=== PATIENT | male | born 1980 | race Hispanic/Latino ===

== ENCOUNTER 2025-01-26 11:30 | Emergency (ER) | payer SELFPAY ==
[~2025-01-26] VITALS: Ht 165.1 cm; Wt 81.6 kg
[2025-01-26 12:06] LABS: NUCLEATED RED BLOOD CELLS 0.0 % (0.0-0.19); PLATELET COUNT (AUTO) 253.0 K/uL (130-400); RED BLOOD CELL COUNT(AUTO) 5.18 MIL/uL (4.50-6.20); RED CELL DISTRIBUTION WIDTH 13.1 % (11.0-15.5); WHITE BLOOD COUNT (AUTO) 11.7 K/uL (4.8-10.8)
[2025-01-26 12:18] LABS: CREATININE 1.1 mg/dL (0.5-1.3); GLOMERULAR FILTR. RATE CALC 85.0 mL/min (>90); GLUCOSE,RANDOM 159.0 mg/dL (70-105); SODIUM SERUM 137.0 mmol/L (136-145); UREA NITROGEN, BLOOD 15.0 mg/dL (7-18)
[2025-01-26 12:24] LABS: CREATINE KINASE, TOTAL 189.0 U/L (21-232)
[2025-01-26] MEDS ORDERED: IOHEXOL-350 75 ML VIAL IV ONE (13:16)
--- NOTE | 2025-01-26 14:25 | ERN ---
General Chief Complaint: Rib Pain Stated Complaint: RT RIB PAIN Time Seen by MD: 11:31 Source: patient, family History of Present Illness Initial Comments Patient is a 44-year-old male coming in complaining a night abdominal pain. Per patient he fell off a 5 ft ladder yesterday and has been having abdominal pain since then. Allergies: Coded Allergies: No Known Allergies (Unverified Allergy, Unknown, 01/26/25) Past Medical History Past Medical History: Diabetes-Type II Past Surgical History: Other ROS Dictation CONSTITUTIONAL: No chills, no fever, no weakness, no diaphoresis, no malaise. HEAD/FACE: No signs of trauma. EENT: No eye pain, no blurred vision, no tearing, no double vision, no ear pain, no ear discharge, no nose pain, no nasal congestion, no throat pain, no t hroat swelling, no mouth pain. RESPIRATORY: No cough, no orthopnea, no SOB, no stridor, no wheezing. CARDIOVASCULAR: No chest pain, no edema, no palpitations, no syncope. GASTROINTESTINAL/ABDOMINAL: No abdominal pain, no constipation, no diarrhea, n o nausea, no vomiting. GENITOURINARY: No abnormal discharge, no dysuria, no frequent urination, no hematuria. No complaints of pain in the genitals. MUSCULOSKELETAL: No back pain, no gout, no joint pain, no joint swelling, no muscle pain, no muscle stiffness, no neck pain. INTEGUMENTARY: No change in color, no change in hair/nails, no dryness, no lesion, no lumps, no rash. NEUROLOGICAL/PSYCH: No anxiety, not depressed, no emotional problem, no headache, no numbness, no pre-existing deficit, no history of seizures, no tremors, no weakness. HEMATOLOGIC/LYMPHATIC: Not anemic, no history of blood clots, no apparent bleeding, no bruising, glands not swollen. All Systems Negative, Except as Noted. Physical Exam Physical Exam Dictation VITAL SIGNS: Reviewed. GENERAL APPEARANCE: Alert, oriented x3, no acute distress, obese. HEAD AND FACE: Non-traumatic. EYES: PERRL, pink conjunctivas, eyelid no trauma, anterior chamber clear. EARS: Pinnas intact and no signs of trauma or erythema. Ear canals clear and no discharge. TMs no erythema. NOSE: No discharge, no bleeding. OROPHARYNX: Mouth normal, teeth no caries, tongue pink. Pharynx clear, no erythema. Tonsils no exudates, no abscesses noted. Mucous membrane moist. NECK: Supple, non-tender, no thyromegaly, no masses, no JVD, no bruits. BREAST: Deferred. CHEST: No tenderness, no crepitus, no paradoxical movement, no retractions. LUNGS: Clear, well-ventilated, symmetric, no rales, no wheezing, no rhonchi, no stridor, good breath sounds bilaterally. HEART: Regular rate, regular rhythm, no murmur, no gallops. VASCULAR: No peripheral edema. ABDOMEN: Soft, positive bowel sounds, nondistended, no guarding, nontender, no rebound, no masses no hepatomegaly, no splenomegaly, no Rao's sign, no hernias. RECTAL: Deferred. GENITAL: Deferred. NEUROLOGICAL: Normal speech, gross motor function intact, gross sensory function intact. MUSCULOSKELETAL: Neck nontender, full range of motion, back nontender, full range of motion. EXTREMITIES: Nontender, full range of motion. SKIN: Color pink, dry, no turgor, no rash, no lacerations, no abrasions, no contusions. LYMPHATICS: Deferred. Results Laboratory and Microbiology Lab and Micro Result Laboratory Tests Test 01/26/25 11:55 White Blood Count 11.7 K/uL (4.8-10.8) H Red Blood Count 5.18 MIL/uL (4.50-6.20) Hemoglobin 15.3 g/dL (14.0-18.0) Hematocrit 46.1 % (42-54) Mean Corpuscular Volume 89.0 fL (79-99) Mean Corpuscular Hemoglobin 29.5 pg (27.0-33.0) Mean Corpuscular Hemoglobin Concent 33.2 g/dL (32.0-36.0) Red Cell Distribution Width 13.1 % (11.0-15.5) Platelet Count 253 K/uL (130-400) Mean Platelet Volume 10.6 fL (7.5-10.5) H Nucleated Red Blood Cells 0.0 % (0.0-0.19) Sodium Level 137 mmol/L (136-145) Potassium Level 4.2 mmol/L (3.5-5.1) Chloride Level 100 mmol/L (101-111) L Carbon Dioxide Level 29 mmol/L (21-32) Blood Urea Nitrogen 15 mg/dL (7-18) Creatinine 1.1 mg/dL (0.5-1.3) Glomerular Filtration Rate Calc 85 mL/min (>90) Random Glucose 159 mg/dL (70-105) H Total Calcium 9.1 mg/dL (8.5-10.1) Total Creatine Kinase 189 U/L (21-232) Labs Reviewed?: Yes EKG/XRAY/US/CT/MRI X-RAY Comment [facility] [address] [place] [address] [id number] IMAGING REPORT Signed PATIENT: JOSESITO MEJIA MR#: [id number] : 1980 SEX: M AGE: 44 LOCATION: [facility] ORDER [id number] STATUS: [facility] REPORT#: [id number] SERVICE 144 REASON: trauma ORDERING PHYSICIAN: WEST FENG MD PROCEDURE: RIB RT W C - RIBS UNI RT W PA CHEST 3+ VWS CLINICAL INFORMATION Trauma COMPARISON None. TECHNIQUE Frontal view chest. Additional select views of the ribs. FINDINGS Lines and tubes: None Lungs: Clear. Pleura: Unremarkable. No effusion or pneumothorax. Cardiomediastinal Silhouette: Unremarkable. Bones: Minimally displaced right lateral eighth and ninth rib fractures. Soft Tissues: Normal. IMPRESSION Minimally displaced right lateral eighth and ninth rib fractures. No pneumothorax. /[place] DICTATED BY: BLU LINN MD DATE: 01/26/251641 ELECTRONICALLY SIGNED BY: BLU LINN MD DATE: 01/26/251641 CT Scan Comment [facility] [address] [place] [id number] IMAGING REPORT Signed PATIENT: JOSESITO MEJIA MR#: [id number] : 1980 SEX: M AGE: 44 LOCATION: [facility] ORDER 36 STATUS: REG ER REPORT#: [id number] SERVICE REASON: abd/ rlq pain trauma ORDERING PHYSICIAN: WEST FENG MD PROCEDURE: ABD PEL W - CT ABDOMEN/PELVIS W/CONTRAST STUDY CT Abdomen and Pelvis with intravenous contrast. HISTORY Abdominal and right lower quadrant pain; history of trauma. TECHNIQUE Axial computed tomography images of the abdomen and pelvis were obtained with intravenous contrast administration. COMPARISON No prior relevant imaging available for comparison. FINDINGS LUNG BASES The visualized lung bases are clear. No pleural effusion or focal consolidation is demonstrated. Minimal bilateral pleural thickening is present with adjacent subpleural plate-like atelectasis measuring up to 1.2 cm on the right and less than 1 cm on the left. LIVER AND BILIARY SYSTEM The liver is mildly enlarged, measuring approximately 16 cm in craniocaudal dimension, with diffusely decreased attenuation compatible with hepatic steatosis. No focal hepatic lesion, capsular disruption, or evidence of traumatic hepatic injury is identified. The gallbladder is unremarkable without radiopaque cholelithiasis, and there is no intrahepatic or extrahepatic biliary ductal dilatation. PANCREAS The pancreas is normal in size and contour, with homogeneous enhancement and no peripancreatic inflammatory changes or fluid collection. SPLEEN The spleen is normal in size and attenuation, without focal lesion or imaging features of splenic injury. ADRENAL GLANDS The adrenal glands are normal in size and morphology without nodule or hemorrhage. KIDNEYS, URETERS, AND BLADDER Both kidneys are normal in size and enhancement without focal lesion, hydronephrosis, or hydroureter. No urinary tract calculi are identified. The urinary bladder is unremarkable in contour and wall thickness. STOMACH AND BOWEL The stomach and visualized small and large bowel loops are normal in caliber and course. There is no evidence of bowel obstruction, wall thickening, pneumatosis, or CT features to suggest enteritis or colitis. APPENDIX The appendix is visualized and appears normal in caliber with no mural thickening, hyperenhancement, periappendiceal fat stranding, or adjacent collection to suggest acute appendicitis. PERITONEUM AND MESENTERY There is no intraperitoneal free air or free fluid. No mesenteric hematoma or organized intra-abdominal collection is seen. LYMPH NODES No pathologically enlarged abdominal or pelvic lymph nodes are identified. REPRODUCTIVE ORGANS The visualized reproductive structures are unremarkable for age and sex as provided, without mass or acute abnormality. VASCULATURE The abdominal aorta is normal in caliber without aneurysm. No major abdominal or pelvic vascular injury is identified. MUSCULOSKELETAL The visualized osseous structures demonstrate normal alignment and mineralization. No acute fracture, dislocation, or aggressive osseous lesion is evident. No significant traumatic soft tissue hematoma is seen in the abdominal or pelvic wall. IMPRESSION * No CT evidence of acute intra-abdominal or pelvic traumatic injury or acute appendicitis; no intra-abdominal collection identified. * Mild hepatomegaly with diffuse hepatic steatosis. * Minimal bilateral pleural thickening with small subpleural plate-like atelectasis at the lung bases, right greater than left. /[place] DICTATED BY: ARIANA WAGNER MD DATE: 01/26/251534 ELECTRONICALLY SIGNED BY: ARIANA WAGNER MD DATE: 01/26/251534 MDM MDM: Differential diagnosis:rib fracture, fall Rationale: Tests considered and ordered secondary to shared decision making include: Previous outside records reviewed: Old ER visits. Risk of complication and/or morbidity or mortality of patient management: None Medications-Per medication reconciliation Need for hospitalization: Patient does not meet criteria for hospitalization. Need for emergency major/minor surgery: No Patient is a 44-year-old male coming in complaining of a fall. X-ray disclose rib fractures in the right side. Patient will be discharged in stable condition with a diagnosis of right-sided rib fracture. ED Course Orders Procedure Category Date Status Time Cbc Without LAB 01/26/25 Complete Differential 11:36 Basic Metabolic Panel LAB 01/26/25 Complete 11:36 Creatine Kinase, Total LAB 01/26/25 Complete 11:36 Ct Abdomen/Pelvis CT 01/26/25 Resulted W/Contrast 11:36 Iohexol (Omnipaque) PHA 01/26/25 Complete 13:16 Ribs Uni Rt W Pa RAD 01/26/25 Resulted Chest 3+ Vws 14:41 Current Medications Medications (Trade) Dose Ordered Sig/Nicko Route PRN Reason Start Time Stop Time Status Last Admin Dose Admin Iohexol (Omnipaque) 75 ml STK-MED ONCE IV 01/26/25 13:16 01/26/25 13:16 DC Vital Signs Date Time Temp Pulse Resp B/P (MAP) Pulse Ox O2 Delivery O2 Flow Rate FiO2 01/26/25 14:54 98.1 88 20 142/88 97 Room Air* 0 21 01/26/25 11:45 98.1 91 20 154/96 97 Room Air* 0 21 01/26/25 11:31 98.1 91 20 154/96 97 Room Air 0 DX & DISP Disposition: Discharge Departure Impression: Primary Impression: Ribs, multiple fractures Condition: Stable Scripts Naproxen (Naproxen) 500 Mg Tablet 1 TAB PO BID for pain for 7 Days, #14 TAB 0 Refills Prov: WEST FENG MD 01/26/25 Gabapentin (Gabapentin) 100 Mg Capsule 1 CAP PO BID for 7 Days, #14 CAP 0 Refills Prov: WEST FENG MD 01/26/25 Additional Instructions: FOLLOW-UP WITH PRIMARY CARE PROVIDER IN 1 TO 2 DAYS. TAKE MEDICATIONS DIRECTED HERE IN THE EMERGENCY ROOM. OKAY TO CONTINUE HOME MEDICATIONS UNLESS OTHERWISE DISCUSSED DURING YOUR VISIT IN THE EMERGENCY ROOM TODAY. RETURN TO YOUR NEAREST EMERGENCY ROOM IF SYMPTOMS WORSEN OR IF THERE IS NO IMPROVEMENT. CALL 911 IF YOU NEED IMMEDIATE ASSISTANCE. TAKE TYLENOL [id number] NEEDED AND IF NO CONTRAINDICATIONS ARE PRESENT. INCREASE ORAL HYDRATION. A WOUND CULTURE OR URINE CULTURE WAS ORDERED HERE IN THE EMERGENCY ROOM DEPARTMENT PLEASE FOLLOW-UP WITH PRIMARY CARE PROVIDER AND ADVISE THEM TO GET REPORTS FROM OUR FACILITY. IF YOU HAD ANY BHUPINDER WRAP/SPLINTS THAT WERE APPLIED HERE, PLEASE DO NOT REMOVE THEM UNTIL YOU SEE YOUR PRIMARY CARE OR SPECIALTY. Referrals: Referrals: SELF,REFERRAL (PCP) JOSÉ MIGUEL HODGES MD, LUIS A MD Time of Disposition: 15:49 WEST FENG MD Jan 26, 2025 14:25
--- NOTE | 2025-01-26 14:37 | HMCIMG ---
STUDY CT Abdomen and Pelvis with intravenous contrast. HISTORY Abdominal and right lower quadrant pain; history of trauma. TECHNIQUE Axial computed tomography images of the abdomen and pelvis were obtained with intravenous contrast administration. COMPARISON No prior relevant imaging available for comparison. FINDINGS LUNG BASES The visualized lung bases are clear. No pleural effusion or focal consolidation is demonstrated. Minimal bilateral pleural thickening is present with adjacent subpleural plate-like atelectasis measuring up to 1.2 cm on the right and less than 1 cm on the left. LIVER AND BILIARY SYSTEM The liver is mildly enlarged, measuring approximately 16 cm in craniocaudal dimension, with diffusely decreased attenuation compatible with hepatic steatosis. No focal hepatic lesion, capsular disruption, or evidence of traumatic hepatic injury is identified. The gallbladder is unremarkable without radiopaque cholelithiasis, and there is no intrahepatic or extrahepatic biliary ductal dilatation. PANCREAS The pancreas is normal in size and contour, with homogeneous enhancement and no peripancreatic inflammatory changes or fluid collection. SPLEEN The spleen is normal in size and attenuation, without focal lesion or imaging features of splenic injury. ADRENAL GLANDS The adrenal glands are normal in size and morphology without nodule or hemorrhage. KIDNEYS, URETERS, AND BLADDER Both kidneys are normal in size and enhancement without focal lesion, hydronephrosis, or hydroureter. No urinary tract calculi are identified. The urinary bladder is unremarkable in contour and wall thickness. STOMACH AND BOWEL The stomach and visualized small and large bowel loops are normal in caliber and course. There is no evidence of bowel obstruction, wall thickening, pneumatosis, or CT features to suggest enteritis or colitis. APPENDIX The appendix is visualized and appears normal in caliber with no mural thickening, hyperenhancement, periappendiceal fat stranding, or adjacent collection to suggest acute appendicitis. PERITONEUM AND MESENTERY There is no intraperitoneal free air or free fluid. No mesenteric hematoma or organized intra-abdominal collection is seen. LYMPH NODES No pathologically enlarged abdominal or pelvic lymph nodes are identified. REPRODUCTIVE ORGANS The visualized reproductive structures are unremarkable for age and sex as provided, without mass or acute abnormality. VASCULATURE The abdominal aorta is normal in caliber without aneurysm. No major abdominal or pelvic vascular injury is identified. MUSCULOSKELETAL The visualized osseous structures demonstrate normal alignment and mineralization. No acute fracture, dislocation, or aggressive osseous lesion is evident. No significant traumatic soft tissue hematoma is seen in the abdominal or pelvic wall. IMPRESSION * No CT evidence of acute intra-abdominal or pelvic traumatic injury or acute appendicitis; no intra-abdominal collection identified. * Mild hepatomegaly with diffuse hepatic steatosis. * Minimal bilateral pleural thickening with small subpleural plate-like atelectasis at the lung bases, right greater than left. /[place]
[2025-01-26 14:54] VITALS: BP 142/88; PULSE 88; RESP 20; TEMP 98.1; O2SAT 97
--- NOTE | 2025-01-26 15:42 | HMCIMG ---
CLINICAL INFORMATION Trauma COMPARISON None. TECHNIQUE Frontal view chest. Additional select views of the ribs. FINDINGS Lines and tubes: None Lungs: Clear. Pleura: Unremarkable. No effusion or pneumothorax. Cardiomediastinal Silhouette: Unremarkable. Bones: Minimally displaced right lateral eighth and ninth rib fractures. Soft Tissues: Normal. IMPRESSION Minimally displaced right lateral eighth and ninth rib fractures. No pneumothorax. /[place]
[2025-01-26] MEDS ORDERED: GABA-529 PO (15:50)
[2025-01-26] MEDS ORDERED: NAPR-1194 PO (15:50)
[2025-01-26] MEDS ORDERED: AZIT500T4 PO (15:51)
== END 2025-01-26 15:52 | disposition home or self-care (01) ==
LOC: EDH 11:30
DX: S22.41XA Multiple fractures of ribs, right side, initial encounter for closed fracture (principal); E11.9 Type 2 diabetes mellitus without complications; W11.XXXA Fall on and from ladder, initial encounter; Y93.89 Activity, other specified; Y92.89 Other specified places as the place of occurrence of the external cause; Y99.8 Other external cause status
CPT/HCPCS: 99285; 74177; 82550; 80048; 85027; 36415; 71101; Q9967